=== PATIENT | male | born 1985 | race Caucasian/White ===

== ENCOUNTER 2017-11-12 21:16 | Inpatient (IN) | payer MEDICAID, OTHER ==
[~2017-11-12] VITALS: Ht 182.9 cm; Wt 76.8 kg
[2017-11-12] MEDS ORDERED: ondansetron/PF 4mg/2ml inj IV ONE (22:25)
[2017-11-12] MEDS ORDERED: normal saline 1000ML IV soln IVB ONE (22:25)
[2017-11-12 22:27] LABS: CLARITY,URINE SLIGHTLY CLOUDY (Clear); COLOR,URINE AMBER (Yellow); GLUCOSE, URINE NEGATIVE (Neg); KETONES,URINE TRACE mg/dl (Neg); LEUKOCYTE ESTERASE ,URINE NEGATIVE (Neg); NITRITES, URINE NEGATIVE (Neg); OCCULT BLOOD,URINE NEGATIVE (Neg); PROTEIN,URINE NEGATIVE (Neg)
[2017-11-12 22:28] LABS: UA COLLECTION TYPE CLN CATCH MIDSTREAM
[2017-11-12] MEDS ORDERED: acetaminophen 325mg tablet PO ONE (22:30)
[2017-11-12 22:48] LABS: BASOPHILS % (AUTO) 0.4 % (0-1); EOSINOPHILS # (AUTO) 0.2 X10'3 (0-0.9); EOSINOPHILS % (AUTO) 1.5 % (0-6); HEMATOCRIT 37.5 % (42.0-52.0); HEMOGLOBIN 12.7 g/dl (14.0-17.9); LYMPHOCYTES # (AUTO) 2.6 X10'3 (1.1-4.8); LYMPHOCYTES % (AUTO) 21.3 % (21-51); MEAN CORPUSCULAR HEMOGLOBIN 29.4 PG (27.0-31.0); MEAN CORPUSCULAR HGB CONC 33.9 % (33.0-36.5); MEAN CORPUSCULAR VOLUME 86.8 FL (78-98); MEAN PLATELET VOLUME 8.5 FL (7.4-10.4); MONOCYTES # (AUTO) 0.6 X10'3 (0-0.9); MONOCYTES % (AUTO) 4.8 % (2-12); NEUTROPHILS # (AUTO) 8.8 X10'3 (1.8-7.7); PLATELET COUNT 224 X10'3 (140-440); RED BLOOD COUNT 4.32 X10'6 (4.70-6.10); RED CELL DISTRIBUTION WIDTH 13.4 % (11.5-14.5); WHITE BLOOD COUNT 12.2 X10'3 (4.5-11.0)
[2017-11-12 22:52] LABS: MUCUS STRANDS MANY /LPF (Neg); SQUAMOUS EPITHELIAL CELL,UR FEW /LPF (FEW)
[2017-11-12 22:53] LABS: BACTERIA,URINE NONE SEEN /HPF (Neg); CAL OXALATE CRYSTALS 1+ /HPF (NEGATIVE); RBC,URINE 0-2 /HPF (0-2); WBC,URINE 0-4 /HPF (0-4)
[2017-11-12 23:07] LABS: ALANINE AMINOTRANSFERASE 28 U/L (12-78); ALBUMIN 3.8 G/DL (3.4-5.0); ALBUMIN/GLOBULIN RATIO 1.1 (1.1-1.5); ALKALINE PHOSPHATASE 63 IU/L (46-116); ANION GAP 7 (8-16); ASPARTATE AMINO TRANSFERASE 17 U/L (10-37); BILIRUBIN,TOTAL 0.3 MG/DL (0.1-1.0); BLOOD UREA NITROGEN 18 MG/DL (7-18); BUN/CREATININE RATIO 20.7 (5.4-32.0); CALCIUM 8.7 MG/DL (8.5-10.1); CHLORIDE 108 MMOL/L (99-107); CREATININE 0.87 MG/DL (0.60-1.10); GLUCOSE 107 MG/DL (70-104); LIPASE 147 U/L (73-393); POTASSIUM 3.5 MMOL/L (3.5-5.1); SODIUM 143 MMOL/L (135-145); TOTAL CARBON DIOXIDE 27.7 MMOL/L (24-32); TOTAL PROTEIN 7.2 G/DL (6.4-8.2); eGFR > 90 ML/MIN
[2017-11-13] VITALS (17 sets, daily range): BP systolic 93–152; BP diastolic 52–88
[2017-11-13] MEDS ORDERED: iohexol 300mg/ml 100ml inj. ONE (00:06)
[2017-11-13] MEDS ORDERED: morphine 4 MG/ML inj SYRINge IV ONE ×2 (01:15→01:20)
[2017-11-13] MEDS ORDERED: levoFLOXACIN-Levaquin 750MG/D5 150 ML IV STA (01:28)
[2017-11-13] MEDS ORDERED: metroNIDAZOLE-Flagyl 500mg/NS 100 ML IV STA (01:28)
[2017-11-13] MEDS: normal saline 1000ml 1,000 ML IV SCH ×6 (01:49→22:07)
[2017-11-13] MEDS ORDERED: magnesium hydroxide 30ml (MOM) UD suspension PO PRN (01:50)
[2017-11-13] MEDS ORDERED: ondansetron/PF 4mg/2ml inj IV PRN ×2 (01:50→19:10)
[2017-11-13] MEDS ORDERED: magnesium 4gm in 100ml NS 100 ML IV PRN (01:50)
[2017-11-13] MEDS ORDERED: potassium Cl 40MEQ/NS 500ml 500 ML IV PRN ×2 (01:50)
[2017-11-13] MEDS ORDERED: acetaminophen 325mg tablet PO PRN (01:50)
[2017-11-13] MEDS ORDERED: morphine 4 MG/ML inj SYRINge IV PRN ×2 (01:50→19:10)
[2017-11-13] MEDS ORDERED: mag hydrox/Alum hydrox/simeth 30ml oral suspension PO PRN (01:50)
[2017-11-13] MEDS ORDERED: magnesium Cl slow-release 64mg tablet PO PRN (01:50)
[2017-11-13] MEDS ORDERED: magnesium 2GM in 50ml NS 50 ML IV PRN (01:50)
[2017-11-13] MEDS ORDERED: potassium Cl 20 mEq SR tablet PO PRN ×2 (01:50)
[2017-11-13] MEDS: morphine 4 MG/ML inj SYRINge IV PRN ×5 (06:14→21:07)
[2017-11-13] MEDS: K and/or MAG REPLACEMENT MC SCH (07:51)
[2017-11-13] MEDS: metroNIDAZOLE-Flagyl 500mg/NS 100 ML IV SCH ×2 (07:54→17:09)
[2017-11-13] MEDS ORDERED: levoFLOXACIN-Levaquin 750MG/D5 150 ML IV SCH (08:00)
[2017-11-13] MEDS ORDERED: metroNIDAZOLE-Flagyl 500mg/NS 100 ML IV SCH (08:00)
[2017-11-13] MEDS ORDERED: normal saline 1000ml 1,000 ML IVB ONE (08:47)
[2017-11-13] MEDS: levoFLOXACIN 750MG TABLET PO SCH (11:00)
[2017-11-13] MEDS ORDERED: BUPIVAcaine/PF 2.5 mg/ml (0.25%) 30ml vial ONE (17:45)
[2017-11-13] MEDS ORDERED: sevoflurane 250ml liquid IH ONE (18:18)
[2017-11-13] MEDS ORDERED: fentaNYL/PF 50MCG/1 ML 2ML syringe ONE (18:24)
[2017-11-13] MEDS ORDERED: midazolam 2 mg/2 ml injection ONE (18:24)
[2017-11-13] MEDS ORDERED: rocuronium 10mg/ml inj IV ONE (18:25)
[2017-11-13] MEDS ORDERED: propofol inj 20 ML IV ONE (18:25)
[2017-11-13] MEDS ORDERED: ringers solution, lacted 1,000 ML IV SCH (19:06)
[2017-11-13] MEDS ORDERED: proCHLORperazine 10 MG/2 ml inj IV PRN (19:10)
[2017-11-13] MEDS ORDERED: meperidine/PF 50mg/ml syringe IV PRN ×3 (19:10)
[2017-11-13] MEDS ORDERED: glycopyrrolate 0.2mg/ml inj ONE (19:32)
[2017-11-13] MEDS ORDERED: neostigmine methylsulfate 1 MG/ML 10ml vial ONE (19:32)
[2017-11-13] MEDS: lactobacillus rhamnosus 10,000 MMU CELLS/CAPSULE PO SCH (20:00)
[2017-11-14] MEDS: metroNIDAZOLE-Flagyl 500mg/NS 100 ML IV SCH ×2 (00:33→08:10)
[2017-11-14 00:43] VITALS: BP 132/74
[2017-11-14 00:44] VITALS: BP 132/74
[2017-11-14] MEDS: morphine 4 MG/ML inj SYRINge IV PRN ×2 (01:15→05:38)
[2017-11-14 04:00] VITALS: BP 100/67
[2017-11-14] MEDS: normal saline 1000ml 1,000 ML IV SCH ×4 (05:01→18:07)
[2017-11-14 05:24] LABS: BASOPHILS % (AUTO) 0.3 % (0-1); EOSINOPHILS # (AUTO) 0.1 X10'3 (0-0.9); HEMATOCRIT 35.5 % (42.0-52.0); HEMOGLOBIN 11.9 g/dl (14.0-17.9); LYMPHOCYTES # (AUTO) 2.3 X10'3 (1.1-4.8); LYMPHOCYTES % (AUTO) 20.7 % (21-51); MEAN CORPUSCULAR HGB CONC 33.5 % (33.0-36.5); MEAN CORPUSCULAR VOLUME 86.6 FL (78-98); MEAN PLATELET VOLUME 9.3 FL (7.4-10.4); MONOCYTES # (AUTO) 0.4 X10'3 (0-0.9); MONOCYTES % (AUTO) 3.8 % (2-12); NEUTROPHILS # (AUTO) 8.3 X10'3 (1.8-7.7); NEUTROPHILS % (AUTO) 74.2 % (42-75); PLATELET COUNT 201 X10'3 (140-440); RED CELL DISTRIBUTION WIDTH 13.5 % (11.5-14.5); WHITE BLOOD COUNT 11.2 X10'3 (4.5-11.0)
[2017-11-14 05:35] LABS: ALANINE AMINOTRANSFERASE 60 U/L (12-78); ALBUMIN 3.4 G/DL (3.4-5.0); ALKALINE PHOSPHATASE 58 IU/L (46-116); ANION GAP 5 (8-16); ASPARTATE AMINO TRANSFERASE 42 U/L (10-37); BILIRUBIN,TOTAL 0.4 MG/DL (0.1-1.0); BLOOD UREA NITROGEN 12 MG/DL (7-18); BUN/CREATININE RATIO 14.6 (5.4-32.0); CALCIUM 8.3 MG/DL (8.5-10.1); CHLORIDE 109 MMOL/L (99-107); CREATININE 0.82 MG/DL (0.60-1.10); GLUCOSE 88 MG/DL (70-104); MAGNESIUM 1.6 MG/DL (1.5-2.4); POTASSIUM 4.1 MMOL/L (3.5-5.1); SODIUM 143 MMOL/L (135-145); TOTAL CARBON DIOXIDE 29.1 MMOL/L (24-32); TOTAL PROTEIN 6.7 G/DL (6.4-8.2); eGFR > 90 ML/MIN
[2017-11-14 06:46] VITALS: BP 110/59
[2017-11-14] MEDS: K and/or MAG REPLACEMENT MC SCH (08:00)
[2017-11-14] MEDS: lactobacillus rhamnosus 10,000 MMU CELLS/CAPSULE PO SCH ×2 (08:11→21:28)
[2017-11-14] MEDS: HYDROcodone/acetaminophen 10/325mg tab PO PRN ×4 (08:16→21:29)
[2017-11-14 08:41] LABS: ALANINE AMINOTRANSFERASE 57 U/L (12-78); ALBUMIN 3.3 G/DL (3.4-5.0); ALKALINE PHOSPHATASE 58 IU/L (46-116); ANION GAP 8 (8-16); ASPARTATE AMINO TRANSFERASE 43 U/L (10-37); BILIRUBIN,TOTAL 0.6 MG/DL (0.1-1.0); BLOOD UREA NITROGEN 11 MG/DL (7-18); BUN/CREATININE RATIO 12.4 (5.4-32.0); CALCIUM 8.5 MG/DL (8.5-10.1); CHLORIDE 109 MMOL/L (99-107); CREATININE 0.89 MG/DL (0.60-1.10); GLUCOSE 89 MG/DL (70-104); POTASSIUM 3.8 MMOL/L (3.5-5.1); SODIUM 145 MMOL/L (135-145); TOTAL CARBON DIOXIDE 28.4 MMOL/L (24-32); TOTAL PROTEIN 6.6 G/DL (6.4-8.2); eGFR > 90 ML/MIN
[2017-11-14 11:00] VITALS: BP 109/65
[2017-11-14] MEDS: levoFLOXACIN 750MG TABLET PO SCH (12:34)
[2017-11-14] MEDS ORDERED: traMADol 50MG tablet PO PRN (13:15)
[2017-11-14] MEDS: metroNIDAZOLE 500mg tablet PO SCH (16:27)
[2017-11-14] MEDS ORDERED: TRAZ-146 PO (17:01)
[2017-11-14] MEDS ORDERED: DIAZ5TAB PO (17:05)
[2017-11-14 19:00] VITALS: BP 121/66
[2017-11-15 00:02] VITALS: BP 124/69
[2017-11-15] MEDS: metroNIDAZOLE 500mg tablet PO SCH ×4 (00:20→23:29)
[2017-11-15] MEDS: normal saline 1000ml 1,000 ML IV SCH ×4 (00:47→19:14)
[2017-11-15] MEDS: HYDROcodone/acetaminophen 10/325mg tab PO PRN ×5 (03:55→23:29)
[2017-11-15 04:08] VITALS: BP 127/74
[2017-11-15 05:11] LABS: BASOPHILS % (AUTO) 0.3 % (0-1); EOSINOPHILS % (AUTO) 0.2 % (0-6); HEMATOCRIT 35.9 % (42.0-52.0); LYMPHOCYTES # (AUTO) 2.2 X10'3 (1.1-4.8); LYMPHOCYTES % (AUTO) 26.9 % (21-51); MEAN CORPUSCULAR HEMOGLOBIN 29.1 PG (27.0-31.0); MEAN CORPUSCULAR HGB CONC 33.5 % (33.0-36.5); MEAN CORPUSCULAR VOLUME 86.8 FL (78-98); MEAN PLATELET VOLUME 9.1 FL (7.4-10.4); MONOCYTES # (AUTO) 0.6 X10'3 (0-0.9); MONOCYTES % (AUTO) 7.7 % (2-12); NEUTROPHILS # (AUTO) 5.4 X10'3 (1.8-7.7); NEUTROPHILS % (AUTO) 64.9 % (42-75); PLATELET COUNT 194 X10'3 (140-440); RED BLOOD COUNT 4.13 X10'6 (4.70-6.10); RED CELL DISTRIBUTION WIDTH 13.4 % (11.5-14.5); WHITE BLOOD COUNT 8.3 X10'3 (4.5-11.0)
[2017-11-15 05:21] LABS: ALANINE AMINOTRANSFERASE 56 U/L (12-78); ALBUMIN 3.4 G/DL (3.4-5.0); ALKALINE PHOSPHATASE 59 IU/L (46-116); ANION GAP 10 (8-16); ASPARTATE AMINO TRANSFERASE 29 U/L (10-37); BILIRUBIN,TOTAL 0.6 MG/DL (0.1-1.0); BLOOD UREA NITROGEN 7 MG/DL (7-18); BUN/CREATININE RATIO 7.6 (5.4-32.0); CALCIUM 8.6 MG/DL (8.5-10.1); CHLORIDE 108 MMOL/L (99-107); CREATININE 0.92 MG/DL (0.60-1.10); GLUCOSE 98 MG/DL (70-104); MAGNESIUM 1.6 MG/DL (1.5-2.4); POTASSIUM 3.8 MMOL/L (3.5-5.1); SODIUM 145 MMOL/L (135-145); TOTAL CARBON DIOXIDE 26.9 MMOL/L (24-32); TOTAL PROTEIN 6.9 G/DL (6.4-8.2); eGFR > 90 ML/MIN
[2017-11-15 07:28] VITALS: BP 115/56
[2017-11-15] MEDS ORDERED: clindamycin 150mg capsule PO SCH (08:00)
[2017-11-15] MEDS: K and/or MAG REPLACEMENT MC SCH (08:00)
[2017-11-15] MEDS: lactobacillus rhamnosus 10,000 MMU CELLS/CAPSULE PO SCH ×2 (08:49→20:19)
[2017-11-15 11:00] VITALS: BP 112/70
[2017-11-15] MEDS: vancomycin/NS 1 GM ADD-VANTAGE 250 ML IV SCH ×2 (12:51→20:19)
[2017-11-15 18:00] VITALS: BP 137/67
[2017-11-16] VITALS: BP 111/65
[2017-11-16] MEDS: normal saline 1000ml 1,000 ML IV SCH ×6 (03:04→10:07)
[2017-11-16] MEDS: vancomycin/NS 1 GM ADD-VANTAGE 250 ML IV SCH (04:16)
[2017-11-16 05:19] LABS: BASOPHILS % (AUTO) 0.5 % (0-1); EOSINOPHILS # (AUTO) 0.1 X10'3 (0-0.9); EOSINOPHILS % (AUTO) 1.6 % (0-6); HEMATOCRIT 34.7 % (42.0-52.0); HEMOGLOBIN 11.9 g/dl (14.0-17.9); LYMPHOCYTES # (AUTO) 2.4 X10'3 (1.1-4.8); LYMPHOCYTES % (AUTO) 32.5 % (21-51); MEAN CORPUSCULAR HEMOGLOBIN 29.5 PG (27.0-31.0); MEAN CORPUSCULAR HGB CONC 34.3 % (33.0-36.5); MEAN CORPUSCULAR VOLUME 86.1 FL (78-98); MEAN PLATELET VOLUME 9.4 FL (7.4-10.4); MONOCYTES # (AUTO) 0.6 X10'3 (0-0.9); MONOCYTES % (AUTO) 7.9 % (2-12); NEUTROPHILS # (AUTO) 4.3 X10'3 (1.8-7.7); NEUTROPHILS % (AUTO) 57.5 % (42-75); PLATELET COUNT 181 X10'3 (140-440); RED BLOOD COUNT 4.04 X10'6 (4.70-6.10); RED CELL DISTRIBUTION WIDTH 13.5 % (11.5-14.5); WHITE BLOOD COUNT 7.5 X10'3 (4.5-11.0)
[2017-11-16 05:36] LABS: ALANINE AMINOTRANSFERASE 56 U/L (12-78); ALBUMIN 3.3 G/DL (3.4-5.0); ALBUMIN/GLOBULIN RATIO 0.9 (1.1-1.5); ALKALINE PHOSPHATASE 56 IU/L (46-116); ANION GAP 8 (8-16); ASPARTATE AMINO TRANSFERASE 30 U/L (10-37); BILIRUBIN,TOTAL 0.6 MG/DL (0.1-1.0); BLOOD UREA NITROGEN 9 MG/DL (7-18); BUN/CREATININE RATIO 11.1 (5.4-32.0); CALCIUM 8.7 MG/DL (8.5-10.1); CHLORIDE 110 MMOL/L (99-107); CREATININE 0.81 MG/DL (0.60-1.10); GLUCOSE 89 MG/DL (70-104); MAGNESIUM 1.6 MG/DL (1.5-2.4); POTASSIUM 3.8 MMOL/L (3.5-5.1); SODIUM 144 MMOL/L (135-145); TOTAL CARBON DIOXIDE 26.4 MMOL/L (24-32); TOTAL PROTEIN 6.8 G/DL (6.4-8.2); eGFR > 90 ML/MIN
[2017-11-16 07:00] VITALS: BP 116/60
[2017-11-16] MEDS: K and/or MAG REPLACEMENT MC SCH (08:00)
[2017-11-16] MEDS: lactobacillus rhamnosus 10,000 MMU CELLS/CAPSULE PO SCH (08:31)
[2017-11-16] MEDS: metroNIDAZOLE 500mg tablet PO SCH (08:31)
[2017-11-16] MEDS: HYDROcodone/acetaminophen 10/325mg tab PO PRN (08:32)
[2017-11-16 11:00] VITALS: BP 127/67
[2017-11-16] MEDS ORDERED: DOCU-28 PO (12:04)
[2017-11-16] MEDS ORDERED: CLIN-5 PO (12:04)
[2017-11-16] MEDS ORDERED: HYDR-3972 PO (12:04)
[2017-11-16] MEDS ORDERED: VANCOMYCIN LEVEL IV NR (12:30)
== END 2017-11-16 13:31 | disposition home or self-care (01) | DRG 263 ==
LOC: ER 21:16 → ED HOLD 11-13 01:49 → SUR 3N 11-13 04:00
PROVIDERS: ADMIT Internal Medicine; ATTEND Internal Medicine
PROC: 0FN44ZZ Release Gallbladder, Percutaneous Endoscopic Approach (ICD-10-PCS; 2017-11-13)
PROC: BW211ZZ Computerized Tomography (CT Scan) of Abdomen and Pelvis using Low Osmolar Contrast (ICD-10-PCS; 2017-11-13)
PROC: CF141ZZ Planar Nuclear Medicine Imaging of Gallbladder using Technetium 99m (Tc-99m) (ICD-10-PCS; 2017-11-13)
PROC: 0FT44ZZ Resection of Gallbladder, Percutaneous Endoscopic Approach (ICD-10-PCS; principal; 2017-11-13 18:18)
DX: K80.00 Calculus of gallbladder with acute cholecystitis without obstruction (principal); I95.9 Hypotension, unspecified; I10 Essential (primary) hypertension; K82.8 Other specified diseases of gallbladder; E86.0 Dehydration; D64.9 Anemia, unspecified; K59.00 Constipation, unspecified; R00.1 Bradycardia, unspecified; F12.90 Cannabis use, unspecified, uncomplicated; F17.210 Nicotine dependence, cigarettes, uncomplicated; Z90.49 Acquired absence of other specified parts of digestive tract; Z88.0 Allergy status to penicillin; Z88.2 Allergy status to sulfonamides
CPT/HCPCS: 36415; 74177; 76700; 78227; 80053; 80202; 81001; 83605; 83690; 83735; 85025; 86885; 86900; 86901; 87040; 87070; 96361; 96374; 99285; A6251; A6449; A7000; A9537; J1956; J2175; J2250; J2270; J2405; J2704; J2710; J3010; J3370; J3490; J7030; J7120; Q9967